=== PATIENT | male | born 2000 | race Caucasian/White ===

== ENCOUNTER 2022-10-14 10:44 | Emergency (ER) | payer OTHER ==
[~2022-10-14] VITALS: Ht 175.3 cm; Wt 61.2 kg
[~2022-10-14 10:44] MED LIST: RXCODACESY PO; RXPROM12.S PR; TRIM200S PR
[2022-10-14] MEDS ORDERED: CEPH500 PO (15:01)
== END 2022-10-14 15:10 | disposition home or self-care (01) ==
LOC: ER 10:44
DX: S62.634A Displaced fracture of distal phalanx of right ring finger, initial encounter for closed fracture (principal); W25.XXXA Contact with sharp glass, initial encounter; Z23 Encounter for immunization
CPT/HCPCS: 73120; 90714